=== PATIENT | female | born 1965 | race Caucasian/White ===

== ENCOUNTER 2017-12-31 21:56 | Emergency (ER) | payer BC, OTHER ==
[~2017-12-31] VITALS: Ht 170.2 cm; Wt 118.8 kg
[~2017-12-31 21:56] MED LIST: MIRAPEX0.5 MG PO; PAXIL10 MG PO
[2017-12-31] MEDS ORDERED: AUGMENTIN 875-1 EACH PO (23:05)
== END 2017-12-31 23:47 | disposition home or self-care (01) ==
LOC: ER 21:56
DX: J32.9 Chronic sinusitis, unspecified (principal); R05 Cough; Z88.1 Allergy status to other antibiotic agents; Z88.8 Allergy status to other drugs, medicaments and biological substances